=== PATIENT | female | born 1990 | race Caucasian/White ===

== ENCOUNTER 2016-06-25 18:16 | Emergency (ER) | payer MEDICAID, OTHER ==
[~2016-06-25] VITALS: Ht 157.5 cm; Wt 104.5 kg
[~2016-06-25 18:16] MED LIST: PRENATAL VITAMIN PO
[2016-06-25] MEDS ORDERED: LIDOCAINE HCL BUFFERED 1% 20 ML VIAL INJ ONE (23:00)
[2016-06-25] MEDS ORDERED: PERTUSS(ACELL),DIPH,TET VAC/PF 0.5 ML VIAL IM ONE (23:15)
[2016-06-26] MEDS ORDERED: BACITRACIN 0.9 GM PACKET OINTMENT TP ONE
[2016-06-26 00:16] VITALS: BP 126/79
== END 2016-06-26 00:16 | disposition home or self-care (01) ==
LOC: EMS 18:17
DX: S61.210A Laceration without foreign body of right index finger without damage to nail, initial encounter (principal); W25.XXXA Contact with sharp glass, initial encounter; Y93.89 Activity, other specified; Y92.89 Other specified places as the place of occurrence of the external cause; Y99.8 Other external cause status
CPT/HCPCS: 12001; 73140; 90471; 90715; 99284; J3490